=== PATIENT | male | born 1980 | race Two or more races ===

== ENCOUNTER 2022-01-11 04:13 | Emergency (ER) | payer MEDICAID ==
[~2022-01-11] VITALS: Ht 172.7 cm; Wt 91.0 kg
[2022-01-11 04:17] VITALS: BP 153/90
[2022-01-11 06:58] LABS: BASOPHILS % 0.5 % (0.0-2.0); EOSINOPHILS % 0.7 % (0.0-5.0); HEMATOCRIT. 43.9 % (42.0-52.0); HEMOGLOBIN. 15.1 g/dL (14.0-18.0); LYMPHOCYTES % 25.8 % (20.0-50.0); MEAN CORPUSCULAR HEMOGLOBIN 28.5 pg (28.0-32.0); MEAN CORPUSCULAR VOLUME 82.7 fL (80.0-94.0); MEAN PLATELET VOLUME 8.6 fl (7.4-10.4); MONOCYTES % 7.1 % (2.0-8.0); NEUTROPHILS % 65.9 % (40.0-76.0); PLATELET 250 x1000/uL (130-400); RED CELL DISTRIBUTION WIDTH 14.5 % (11.6-14.6)
[2022-01-11 07:07] LABS: CHLORIDE 107 mEq/L (98-107)
[2022-01-11] MEDS ORDERED: MUPI1OIN4 TP (09:00)
[2022-01-11] MEDS ORDERED: RALT400T MT (09:17)
[2022-01-11] MEDS ORDERED: EMTR1TAB11 MT (09:17)
[2022-01-11] MEDS ORDERED: TETANUS, DIPHTHERIA, PERTUSSIS VAC/PF 0.5ML (>10YR OLD) IM ONE (09:30)
== END 2022-01-11 10:23 | disposition home or self-care (01) ==
LOC: ER 04:13
DX: S60.411A Abrasion of left index finger, initial encounter (principal); W25.XXXA Contact with sharp glass, initial encounter; Y93.89 Activity, other specified; Y92.89 Other specified places as the place of occurrence of the external cause; Y99.8 Other external cause status; E11.9 Type 2 diabetes mellitus without complications
CPT/HCPCS: 36415; 73130; 73630; 80053; 85025; 86703; 90471; 90715; 99284

== ENCOUNTER 2022-07-08 18:42 | Emergency (ER) | payer MEDICAID ==
[~2022-07-08] VITALS: Ht 182.9 cm; Wt 68.0 kg
[~2022-07-08 18:42] MED LIST: EMTR1TAB11 MT; MUPI1OIN4 TP; RALT400T MT
[2022-07-08 18:44] VITALS: BP 122/78
== END 2022-07-09 03:58 | disposition left against medical advice (07) ==
LOC: ER 18:51
DX: Z53.21 Procedure and treatment not carried out due to patient leaving prior to being seen by health care provider (principal); F41.9 Anxiety disorder, unspecified; E11.9 Type 2 diabetes mellitus without complications

== ENCOUNTER 2022-07-09 04:23 | Emergency (ER) | payer MEDICAID ==
[~2022-07-09] VITALS: Ht 172.7 cm; Wt 74.2 kg
[2022-07-09 06:08] LABS: BASOPHILS % 0.3 % (0.0-2.0); EOSINOPHILS % 2.4 % (0.0-5.0); HEMATOCRIT. 37.5 % (42.0-52.0); HEMOGLOBIN. 12.9 g/dL (14.0-18.0); LYMPHOCYTES % 18.1 % (20.0-50.0); MEAN CORPUSCULAR HEMOGLOBIN 29.8 pg (28.0-32.0); MEAN CORPUSCULAR VOLUME 86.2 fL (80.0-94.0); MEAN PLATELET VOLUME 7.6 fl (7.4-10.4); MONOCYTES % 9.7 % (2.0-8.0); NEUTROPHILS % 69.5 % (40.0-76.0); PLATELET 267 x1000/uL (130-400); RED BLOOD CELL COUNT 4.35 mill/uL (4.7-6.1); RED CELL DISTRIBUTION WIDTH 14.3 % (11.6-14.6)
[2022-07-09 06:18] LABS: CHLORIDE 106 mEq/L (98-107)
[2022-07-09 06:32] LABS: ETHANOL BLOOD < 10 mg/dL
[2022-07-09 09:44] LABS: CLARITY URINE CLEAR (CLEAR); COLOR URINE DARK YELLOW (YELLOW); KETONES URINE 2+ (NEGATIVE); LEUKOCYTE ESTERASE URINE NEGATIVE (NEGATIVE); NITRITE URINE NEGATIVE (NEGATIVE); OCCULT BLOOD URINE NEGATIVE (NEGATIVE); PH URINE 5.5 (4.5-8.0); PROTEIN URINE 1+ (NEGATIVE); SPECIFIC GRAVITY URINE 1.033 (1.005-1.030)
[2022-07-09 11:35] LABS: *AMPHETAMINES SCREEN URINE PRESUMTIVE POSITIVE (NEGATIVE); *BARBITURATES SCREEN URINE NEGATIVE (NEGATIVE); *BENZODIAZEPINES SCREEN URINE NEGATIVE (NEGATIVE); *COCAINE SCREEN URINE NEGATIVE (NEGATIVE); CANNABINOID URINE SCREEN NEGATIVE (NEGATIVE); METHADONE URINE SCREEN NEGATIVE (NEGATIVE); OPIATES URINE SCREEN NEGATIVE (NEGATIVE); PHENCYCLIDINE URINE SCREEN NEGATIVE (NEGATIVE)
[2022-07-09] MEDS ORDERED: LORAZEPAM 2MG/ML CPJ IM ONE (20:45)
[2022-07-09] MEDS ORDERED: OLANZAPINE 5MG TABLET ODT PO SCH (21:00)
[2022-07-10 13:59] VITALS: BP 101/49
== END 2022-07-10 15:52 | disposition hospice, inpatient (51) ==
LOC: ER 04:23
DX: F29 Unspecified psychosis not due to a substance or known physiological condition (principal); F41.9 Anxiety disorder, unspecified; E11.9 Type 2 diabetes mellitus without complications; Z20.822 Contact with and (suspected) exposure to COVID-19
CPT/HCPCS: 36415; 80053; 80305; 80320; 81003; 85025; 87426; 96372; 99285; C9803; J2060; G0480